=== PATIENT | female | born 1950 | race Caucasian/White ===

== ENCOUNTER 2021-12-24 14:12 | Outpatient (CLI) | payer BC | END 2021-12-24 14:13 | disposition home or self-care (01) | LOC: CSHMAMMO 14:12 | PROVIDERS: ATTEND Specialist | DX: Z12.31 Encounter for screening mammogram for malignant neoplasm of breast (principal) | CPT/HCPCS: 77063; 77067 ==

== ENCOUNTER 2023-01-09 08:23 | Outpatient (CLI) | payer MEDICARE | END 2023-01-09 08:24 | disposition home or self-care (01) | LOC: CSHMAMMO 08:23 | PROVIDERS: ATTEND Specialist | DX: Z12.31 Encounter for screening mammogram for malignant neoplasm of breast (principal) | CPT/HCPCS: 77063; 77067 ==